=== PATIENT | male | born 1960 | race African-American/Black ===

== ENCOUNTER 2021-09-28 13:23 | Outpatient (CLI) | payer OTHER ==
[2021-09-28 20:38] VITALS: BP 126/78
--- NOTE | 2021-09-28 20:38 | SLEEP CARE CONSULTATION ---
Information from patient questionnaire entered by Aquiles Hawkins MA. I have reviewed and concur with the information entered by Aquiles Hawkins MA. This document represents the service I personally performed and the decisions made by me, Oliverio Tay MD, [facility]. History of Present Illness Service Date and Time: 09/28/2021 1323 Reason for Visit: New patient (ONSET, 08/2011, NO PRIORS,) Chief Complaint: reports: Snoring, Observed pauses in breathing Date of Onset: 23 YEARS Usual bedtime: 900 -1000 PM Time it takes to fall asleep: 60 - 90 MINUTES Snores at night: Yes Observed to quit breathing while asleep: Yes Sleeps alone due to snoring: Yes Number of times waking at night: 1-2 Reasons for waking at night: reports: Bathroom Toss, Turn, or Twitch while sleeping: Yes Recalls having dreams: Yes Feels refreshed in the morning: No Morning headache: No Sleepy or fatigued during the day: Yes Ever fallen asleep while driving: No Takes day naps: No Dreams during day naps: No Prior sleep studies: No Additional HPI information: I had the pleasure of seeing Mr. Wen today regarding the possibility of him having a sleep disorder. As you know, he is a 60-year-old gentleman who complains of loud snore and observed apneas. The patient tells me that he normally goes to bed around 9 pm, and it takes him approximately 60 - 90 minutes to fall asleep. He not been told that he snores loudly and irregularly at night. He has also been observed to stop breathing in his sleep. His has to sleep in a separate room. He can recall waking up on the average of 1 - 2 times during the night. Most of the time he wakes up because of having to use the bathroom. He has awakened occasionally because of his own snoring, choking, and having to gasp for air. There is not a lot of tossing and turning in his sleep. No somniloquy (sleep talking) or somnambulism (sleep walking). Generally, he can recall having dreams. In the morning he usually gets up out of the bed around 4 a.m. feeling refreshed and rested. He usually does not have a morning headache. During the day he denies being sleepy or fatigued. However, his score on Ary Sleepiness Scale is 15 out of 24. He never has fallen asleep while driving nor has had any accident due to sleepiness. He usually does not take naps during the day. He denies having impaired concentration during the day. 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 Patient is and lives in [place]. Have you smoked in the past 12 months: No Alcohol amount and frequency: 4 X YEARLY Caffeine use: Yes Caffeine amount and frequency: 1 X DAILY Allergies and Home Medications Known drug allergies: No Drug allergies reviewed: Yes Home medication list reviewed: Yes Review of Systems Cardiovascular: reports: high blood pressure Respiratory: denies: shortness of breath, wheeze, sputum production, chronic cough, other Gastrointestinal: denies: heartburn, difficulty swallowing, nausea, vomitting, diarrhea, abdominal pain, other Urinary: reports: frequency, urgency Neurological: denies: headaches, seizure, head trauma, disorientation, speech dysfunction, gait or balance problems, fainting or unconsciousness, other Psychiatric: denies: Attention Deficit Hyperactivity, anxiety, depression, mood disorder, claustrophobia, other Ear/Nose/Throat: denies: nasal congestion, sinus problems, nose bleeds, dry mouth/throat, hoarseness, injury to nose, tonsillectomy, wisdom teeth removed, other Endocrine: denies: thyroid disease, history of goiter, sluggishness, too hot or cold, excessive thirst, increased appetite, increased urination, unexplained weakness, other Musculoskeletal: reports: joint pain, back pain Immunologic: denies: sneezing, rash, itching, allergies to food or environment, other Physical Exam Vital signs obtained and entered by: Wisam HAWKINS CMA [facility] Blood Pressure: 126/78 (RIGHT, PULSE 42, RESP 16,) Cuff size: wrist Heart Rate: 42 O2 Saturation: 99 (PAPER MASK) Height: 6 ft 4 in Weight: 275 lb (W/O CLOTHES) Body Mass Index: 33.5 BMI Classification: Obese Mood/affect: normal Impression and Plan IMPRESSION: 1. Obstructive Sleep Apnea-Hypopnea Syndrome, as suggested by history of loud and irregular snoring, observed cessation of breath while asleep, and history of hypertension. Narrow oropharynx and obesity are common predisposing factors for obstructive sleep apnea-hypopnea syndrome. I recommend proceeding to polysomnography to confirm the diagnosis and to assess severity. If he has significant sleep disordered breathing, a manual CPAP titration study will also be performed to find the optimal treatment pressure. I informed the patient of what the sleep studies involve and after some discussion, he agreed to proceed. Plan: 1. Schedule polysomnography + manual CPAP titration study and return in 1 to 2 weeks after the study to discuss result and initiate therapy. 2. Avoid long distance driving or when feeling sleepy. 3. Avoid alcohol, sedative and muscle relaxant around bedtime. 4. Attempt to lose weight. Follow up with Sleep Care in: 1-2 months Visit Type: In Office Time Spent with Patient (minutes): 15 Provider Statement: I spent 100% of the Face to Face Visit with the patient with greater than 50% spent counseling the patient and coordination of care.
== END 2021-09-28 13:24 | disposition home or self-care (01) ==
LOC: SC 13:23
PROVIDERS: ATTEND Internal Medicine Pulmonary Disease
DX: R06.83 Snoring (principal); I10 Essential (primary) hypertension; R06.81 Apnea, not elsewhere classified; E66.9 Obesity, unspecified; Z68.33 Body mass index [BMI] 33.0-33.9, adult
CPT/HCPCS: 99202; 99212